=== PATIENT | male | born 1975 | race Caucasian/White ===

== ENCOUNTER 2021-06-07 11:44 | Emergency (ER) | payer OTHER ==
[2021-06-07 11:45] VITALS: BP 141/82
== END 2021-06-07 14:05 | disposition home or self-care (01) ==
LOC: ED 11:44
DX: T26.91XA Corrosion of right eye and adnexa, part unspecified, initial encounter (principal); X58.XXXA Exposure to other specified factors, initial encounter; Y92.59 Other trade areas as the place of occurrence of the external cause; Y99.0 Civilian activity done for income or pay